=== PATIENT | female | born 1995 | race African-American/Black ===

== ENCOUNTER 2016-08-01 10:47 | Emergency (ER) | payer OTHER ==
[~2016-08-01] VITALS: Ht 162.6 cm; Wt 53.5 kg
[2016-08-01 10:51] VITALS: BP 130/82
[2016-08-01] MEDS ORDERED: FIORICET 50-301 EACH PO (11:49)
[2016-08-01] MEDS ORDERED: IBUPROFEN800 M1 PO (11:49)
--- NOTE | 2016-08-01 11:50 | ED HEADACHE COMPLAINT ---
History of Present Illness General Chief Complaint: Headache Stated Complaint: PAIN ON L SIDE OF HEAD/FACE X1DAY Source: patient Exam Limitations: no limitations Vital Signs & Intake/Output Vital Signs & Intake/Output Vital Signs Date Time Temp Pulse Resp B/P B/P Pulse O2 O2 Flow FiO2 Mean Ox Delivery Rate 08/01 1206 98 Room Air 08/01 1051 96.8 89 18 130/82 98 Room Air Allergies Coded Allergies: NO KNOWN ALLERGIES (07/29/11) Reconcile Medications Butalb/Acetaminophen/Caffeine (Fioricet 50-300-40 MG Capsule) 50 MG-300 MG-40 MG CAPSULE 1-2 TAB PO Q8P PRN HEADACHE Ibuprofen 800 MG TABLET 1 TAB PO TID headache Triage Note: 21 Y/O FEMALE C/O L SIDED HEAD PAIN X 2 DAYS; INTERMITTENT IN NATURE. STATES SHE TOOK ADVIL LAST NIGHT WITH SOME RELIEF. SPEAKING CLEARLY WITH NO NEURO DEFICITS NOTED Triage Nurses Notes Reviewed? yes Onset: Abrupt Duration: day(s): (couple), constant, continues in ED Timing: recent history Quality/Severity: sharp No Modifying Factors: none : No Patient currently breastfeeds: No HPI: 21-year-old female comes into the emergency room with complaints of left frontal headache has been going on intermittently for the past couple days. Patient reports that the pain will come and go and she will get this sharp pain that lasts for 1-2 seconds and then go away. It happens intermittently. It happened frequently last night and was more severe. The symptoms have improved today. She reports that the pain has started yesterday morning and was mild and then progressively got worse throughout the day. She denies any trauma. Denies any prior history of this. Denies any noise sensitivity light sensitivity. Denies any prior history of headaches. Denies any fever chills vomiting confusion vision loss. Denies any eye pain. Denies any runny nose cough congestion ear pain or dental pain. She does have a history of allergies to pollen. Denies any rashes. Patient reports that she was down in [place] a couple weeks ago. Denies any recent bites of any sort. (MARIA ESTHER BORGES) Past History Travel History Traveled to [place] past 21 day No Medical History Any Pertinent Medical History? 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 No (MARIA ESTHER BORGES) Review of Systems Review of Systems Constitutional: Reports: no symptoms. Eyes: Reports: no symptoms. Ears, Nose, Throat, Mouth: Reports: no symptoms. Respiratory: Reports: no symptoms. Cardiovascular: Reports: no symptoms. Gastrointestinal/Abdominal: Reports: no symptoms. Genitourinary: Reports: no symptoms. Musculoskeletal: Reports: no symptoms. Skin: Reports: no symptoms. Neurological/Psychological: Reports: see HPI. Hematologic/Endocrine: Reports: no symptoms. Endocrine: Reports: no symptoms. Immunologic/Allergic: Reports: no symptoms. All Other Systems: Reviewed and Negative (MARIA ESTHER BORGES) Physical Exam Physical Exam General Appearance: well developed/nourished, no apparent distress, alert Head: atraumatic Eyes: Bilateral: normal appearance. Ears, Nose, Throat: normal pharynx, normal ENT inspection Neck: normal inspection Respiratory: normal breath sounds, no respiratory distress Cardiovascular: regular rate/rhythm Back: normal range of motion Extremities: normal inspection Psychiatric: awake, alert, oriented x 3 Cranial Nerves: normal hearing, normal speech, PERRL Coordination/Gait: normal finger to nose, normal gait Motor/Sensory: no motor/sensory deficits Skin: intact, normal color Core Measures Severe Sepsis Present: No Septic Shock Present: No (MARIA ESTHER BORGES) Progress Differential Diagnosis: carotid dissection, cav sinus thromb, cluster BECERRA, encephalitis, IC mass/tumor, intracranial Hem., meningitis, migraine BECERRA, musculoskeletal pain, sinusitis, SSS thrombosis, subarach. Hem., tension BECERRA, temporal arteritis, TMJ syndrome, viral cephalgia Plan of Care: 08/01/2016 12:16:41 PM Patient clinically looks well. Neurologically intact. Nontoxic-appearing. Resting comfortably in room. Shared decision making. At this time I do not feel CT scan of head is 100% necessary. She clinically looks well. She does not appear to be any type of distress. Discussed getting CT scan of head. Patient agrees with my plan of care will be treated symptomatically and follow up with her primary care doctor. At this time I do not feel CAT scan is emergent. As stated before shared decision making with patient. She agrees with my plan of care. Patient be treated and follow-up with primary care doctor. Most likely diagnosis is a sinus headache. Considered subarachnoid hemorrhage but was not sudden onset headache. She is neurologically intact. The headache is intermittent. She has no signs of meningitis. No nuchal rigidity. Afebrile. Nontoxic appearing. There is no trauma. Nothing to indicate a skull fracture or intracranial bleeding. Considered migraine but she has no prior history of migraines. She has no light sensitivity/noise sensitivity. She has no eye pain to indicate an ocular migraine. She may need further follow-up with neurologist if her symptoms are improving after she sees her primary care doctor. (LISSETH ARGUELLO,MARIA ESTHER) Departure Departure Disposition: HOME OR SELF CARE Condition: Stable Clinical Impression Primary Impression: Headache Referrals: UNKNOWN (PCP/Family) Additional Instructions: Take ibuprofen 800 as prescribed and Fioricet as prescribed. Follow-up with your primary care doctor. If you develop any vision loss, increased headache, vomiting, confusion, return to the emergency room immediately for further evaluation and diagnostic imaging of her brain. Please go over all results of today's visit with your primary care doctor. Contact your primary care doctor to let them know you were here in the emergency room. There may be nonspecific findings which may not be related to your visit today here in the emergency room but may require further evaluation and chronic monitoring by your primary care doctor. If you had a laceration today the chance of foreign body always remains. You should follow-up with your primary care doctor for recheck in 3-5 days for a wound check. If you had an x-ray done there is a chance that a fracture could have been missed on initial read and you should follow-up with your primary care doctor for repeat x-rays if symptoms persist. If your blood pressure was elevated here in the emergency room please have rechecked by her primary care doctor within the next 48 hours by your primary care doctor. If you were prescribed a narcotic here in the emergency room or any type of controlled substances you're not allowed to drive while taking this medication or operate any type of heavy machinery. Narcotics can make you feel lightheaded dizziness nausea and can cause constipation. You may need to pick out hand a stool softener. Thank you for choosing [facility] emergency room. Please return to the emergency room immediately if you have any other concerns worsening of symptoms. Departure Forms: Customer Survey General Discharge Information Prescriptions: Current Visit Scripts Ibuprofen 1 TAB PO TID #20 TAB Butalb/Acetaminophen/Caffeine (Fioricet 50-300-40 MG Capsule) 1-2 TAB PO Q8P PRN HEADACHE #20 MG (MARIA ESTHER BORGES) PA/MENTALLY RETARDED TEACHER Co-Sign Statement Statement: ED Attending supervision documentation- [X] I saw and evaluated the patient. I have also reviewed all the pertinent lab results and diagnostic results. I agree with the findings and the plan of care as documented in the PA's/MENTALLY RETARDED TEACHER's documentation. [] I have reviewed the ED Record and agree with the PA's/MENTALLY RETARDED TEACHER's documentation. [] Additions or exceptions (if any) to the PAs/MENTALLY RETARDED TEACHER's note and plan are summarized below: [] (JOSEFINA HAWTHORNE DO
== END 2016-08-01 12:11 ==
LOC: ERH 10:47
DX: R51 Headache (principal)